=== PATIENT | female | born 1970 | race American Indian/Alaskan Native ===

== ENCOUNTER 2017-12-03 16:33 | Emergency (ER) | payer SELFPAY ==
[2017-12-03 20:26] VITALS: BP 141/86
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
--- NOTE | 2017-12-03 22:48 | XRay Report ---
FINAL REPORT EXAM: XR SPINE LUMBOSACRAL 2-3V HISTORY: BACK INJURY TECHNIQUE: AP, lateral and coned-down views of the lumbar spine PRIORS: None. FINDINGS: The vertebral body heights and disc spaces are well maintained. The alignment is normal. No evidence for spondylolysis or spondylolisthesis is seen. Pedicles are intact bilaterally at all levels. The paraspinal soft tissues are unremarkable. IMPRESSION: Normal lumbar spine.
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
== END 2017-12-03 22:29 | disposition home or self-care (01) ==
LOC: ED 16:33
DX: S13.9XXA Sprain of joints and ligaments of unspecified parts of neck, initial encounter (principal); S33.5XXA Sprain of ligaments of lumbar spine, initial encounter; V89.2XXA Person injured in unspecified motor-vehicle accident, traffic, initial encounter; Y93.89 Activity, other specified; Y99.8 Other external cause status; Y92.89 Other specified places as the place of occurrence of the external cause
CPT/HCPCS: 72040; 72100